=== PATIENT | male | born 1940 | race Caucasian/White ===

== ENCOUNTER 2021-12-16 11:54 | Day surgery (SDC) | payer MEDICARE, BC ==
[~2021-12-16] VITALS: Ht 170.2 cm; Wt 77.9 kg
[2021-12-16] MEDS ORDERED: nitroGLYCERIN 0.4mg SUBLingual tab SL PRN (12:15)
[2021-12-16] MEDS ORDERED: diphenhydrAMINE 25mg capsule PO PRN (12:15)
[2021-12-16] MEDS ORDERED: LORazepam 0.5 MG tablet PO PRN (12:15)
[2021-12-16] MEDS ORDERED: normal saline 1,000 ML IV SCH (12:15)
[2021-12-16] MEDS ORDERED: METO-395 PO (12:32)
[2021-12-16] MEDS ORDERED: ASPI-611 PO (12:33)
--- NOTE | 2021-12-16 13:17 | NUR ---
Patient arrived and notified us that he doesn't have a ride home and was planning on staying the night. Notified Dr. Lopez that patient does not have a ride. In the meantime, EKG obtained and patient dressed in gown and med rec completed. [place] back from Dr. Lopez and plan is to reschedule the procedure. Patient got himself dressed and ambulated to his own vehicle, discharged home.
== END 2021-12-16 12:55 | disposition home or self-care (01) ==
LOC: SSTAY O 11:54
PROVIDERS: ATTEND Internal Medicine Cardiovascular Disease
DX: R94.39 Abnormal result of other cardiovascular function study (principal); I20.9 Angina pectoris, unspecified; Z53.8 Procedure and treatment not carried out for other reasons; E78.5 Hyperlipidemia, unspecified; M19.90 Unspecified osteoarthritis, unspecified site; N40.0 Benign prostatic hyperplasia without lower urinary tract symptoms; Z96.651 Presence of right artificial knee joint; Z98.890 Other specified postprocedural states; Z79.899 Other long term (current) drug therapy
CPT/HCPCS: 93005

== ENCOUNTER 2021-12-29 09:27 | Day surgery (SDC) | payer MEDICARE, BC ==
[~2021-12-29] VITALS: Ht 170.2 cm; Wt 78.3 kg
[2021-12-29] VITALS (11 sets, daily range): BP systolic 100–173; BP diastolic 53–107
[~2021-12-29 09:27] MED LIST: ASPI-611 PO; METO-395 PO
[2021-12-29] MEDS ORDERED: diphenhydrAMINE 25mg capsule PO PRN (09:55)
[2021-12-29] MEDS ORDERED: normal saline 1,000 ML IV SCH (09:55)
[2021-12-29] MEDS ORDERED: LIDOcaine/PRILOcaine 5gm cream TP ONE (09:55)
[2021-12-29] MEDS ORDERED: LORazepam 0.5 MG tablet PO PRN (09:55)
[2021-12-29 10:59] LABS: BASOPHILS % (AUTO) 0.7 % (0-1); EOSINOPHILS # (AUTO) 0.2 X10'3 (0-0.9); EOSINOPHILS % (AUTO) 2.8 % (0-6); HEMATOCRIT 40.2 % (42.0-52.0); HEMOGLOBIN 13.5 g/dl (14.0-17.9); LYMPHOCYTES # (AUTO) 1.4 X10'3 (1.1-4.8); LYMPHOCYTES % (AUTO) 24.6 % (21-51); MEAN CORPUSCULAR HEMOGLOBIN 31.2 PG (27.0-31.0); MEAN CORPUSCULAR HGB CONC 33.7 g/dL (33.0-36.5); MEAN CORPUSCULAR VOLUME 92.8 FL (78-98); MEAN PLATELET VOLUME 8.2 FL (7.4-10.4); MONOCYTES # (AUTO) 0.6 X10'3 (0-0.9); MONOCYTES % (AUTO) 10.8 % (2-12); NEUTROPHILS # (AUTO) 3.4 X10'3 (1.8-7.7); NEUTROPHILS % (AUTO) 61.1 % (42-75); PLATELET COUNT 136 X10'3 (140-440); RED BLOOD COUNT 4.33 X10'6 (4.70-6.10); RED CELL DISTRIBUTION WIDTH 13.6 % (11.5-14.5); WHITE BLOOD COUNT 5.6 X10'3 (4.5-11.0)
[2021-12-29 11:21] LABS: ALBUMIN 3.3 G/DL (3.4-5.0); ANION GAP 7 (8-16); BLOOD UREA NITROGEN 14 MG/DL (7-18); BUN/CREATININE RATIO 14.4 (5.4-32.0); CALCIUM 8.4 MG/DL (8.5-10.1); CHLORIDE 110 MMOL/L (99-107); CREATININE 0.97 MG/DL (0.60-1.10); GLUCOSE 97 MG/DL (70-104); POTASSIUM 4.3 MMOL/L (3.5-5.1); SODIUM 143 MMOL/L (135-145); TOTAL CARBON DIOXIDE 25.9 MMOL/L (24-32); eGFR 74 ML/MIN
[2021-12-29 11:42] LABS: APTT 25 SECONDS (22-32)
[2021-12-29] MEDS ORDERED: fentaNYL/PF 50MCG/1 ML 2ML syringe ONE (13:21)
[2021-12-29] MEDS ORDERED: nitroGLYCERIN-Tridil 50MG/D5W 250 ML IV ONE (13:21)
[2021-12-29] MEDS ORDERED: midazolam 1 mg/ML 2ml injection ONE (13:21)
[2021-12-29] MEDS ORDERED: LIDOcaine 1% 30ml preserv. free vial ONE (13:21)
[2021-12-29] MEDS ORDERED: verapamil 2.5 mg/ml inj IV ONE (13:21)
[2021-12-29] MEDS ORDERED: heparin 1,000unit/ml 10ml vial 10 ML ONE (13:21)
--- NOTE | 2021-12-29 13:30 | NUR ---
Dr. Hanh May at bedside talking with pt. Report to Josh RUANO. Pt to clinical laboratory director.
--- NOTE | 2021-12-29 14:10 | NUR ---
Pt returns from labor relations supervisor, VSS, denies pain. Vasc band intact to right wrist. Right arm placed up on pillow. Pt given water to drink, awaiting [place] to return to bring him something to eat.
[2021-12-29] MEDS ORDERED: HYDROcodone/acetaminophen 5mg/325mg tablet PO PRN (14:45)
[2021-12-29] MEDS ORDERED: HYDROcodone/acetaminophen 10/325mg tab PO PRN (14:45)
[2021-12-29] MEDS ORDERED: ondansetron/PF 4mg/2ml inj IV PRN (14:45)
[2021-12-29] MEDS ORDERED: proCHLORperazine 10 MG/2 ml inj IV PRN (14:45)
--- NOTE | 2021-12-29 15:50 | NUR ---
[place] returns with food for pt to eat. Pt sitting up in bed, vasc band completely deflated, remains inplace. Pt eating without issues. VSS, denies pain.
--- NOTE | 2021-12-29 16:00 | NUR ---
Written and verbal DC instructions given to pt and [place], questions answered, both verbalize understanding. Right wrist vasc band removed, dressing applied, no bleeding, bruising or hematoma noted. Pt up and amb in hallway, gait steady, amb to restroom, void in toilet.
--- NOTE | 2021-12-29 16:15 | NUR ---
PIV DC cath intact, VSS, denies pain, right wrist site stable, no bleeding, bruising or hematoma noted. [place] assisted pt to get dressed, steady on feet.
--- NOTE | 2021-12-29 16:38 | NUR ---
DC to home with [place], transferred pt to private car via with all belongings. Pt able to transfer self to car. Right wrist site stable, no bleeding, bruising or hematoma noted.
== END 2021-12-29 16:38 | disposition home or self-care (01) ==
LOC: SSTAY O 09:27
PROVIDERS: ATTEND Internal Medicine Interventional Cardiology
DX: R94.39 Abnormal result of other cardiovascular function study (principal); I10 Essential (primary) hypertension; Z96.651 Presence of right artificial knee joint; Z79.01 Long term (current) use of anticoagulants; Z79.899 Other long term (current) drug therapy
CPT/HCPCS: 36415; 80048; 85025; 85610; 85730; 93005; 93458; 99152; C1769; C1894; J1644; J2250; J3010; J3490; J7030; Q0163; A4620; A5120; A6258

== ENCOUNTER 2022-06-01 10:59 | Day surgery (SDC) | payer MEDICARE, BC ==
[2022-06-01] VITALS (9 sets, daily range): BP systolic 110–157; BP diastolic 58–95
[~2022-06-01] VITALS: Ht 171.4 cm; Wt 70.0 kg
[2022-06-01] MEDS ORDERED: MIDAZolam 1mg/ml 10ml vial IV ONE (11:40)
[2022-06-01] MEDS ORDERED: fentaNYL/PF 50MCG/1 ML 2ML syringe IV ONE (11:40)
[2022-06-01] MEDS ORDERED: normal saline 1000ml 1,000 ML IV SCH (11:45)
[2022-06-01] MEDS ORDERED: MAGN400T39 PO (12:14)
[2022-06-01] MEDS ORDERED: APIX5TAB3 PO (12:14)
[2022-06-01] MEDS ORDERED: CHOL50004 PO (12:14)
[2022-06-01] MEDS ORDERED: RED600TA PO (12:14)
[2022-06-01] MEDS ORDERED: SOTA80TA PO (12:14)
[2022-06-01] MEDS ORDERED: VITA400T10 PO (13:18)
[2022-06-01] MEDS ORDERED: FISH12002 PO (13:18)
[2022-06-01] MEDS ORDERED: ASCO-157 PO (13:18)
[2022-06-01] MEDS ORDERED: LACT1CAP65 PO (13:18)
[2022-06-01] MEDS ORDERED: ZINC50TA60 PO (13:18)
[2022-06-01] MEDS ORDERED: NIAC500C12 PO (13:18)
[2022-06-01] MEDS ORDERED: LACT1TAB11 PO (13:18)
== END 2022-06-01 15:40 | disposition home or self-care (01) ==
LOC: SSTAY O 10:59
PROVIDERS: ATTEND Student in an Organized Health Care Education/Training Program
DX: I48.91 Unspecified atrial fibrillation (principal); I48.92 Unspecified atrial flutter; Z79.899 Other long term (current) drug therapy; Z98.890 Other specified postprocedural states
CPT/HCPCS: 92960; 93005; J2250; J3010; J7030; A4620